=== PATIENT | female | born 1945 | race Caucasian/White ===

== ENCOUNTER 2018-02-07 07:26 | Emergency (ER) | payer MEDICARE, MEDICAID | END 2018-02-07 07:57 | disposition home or self-care (01) | LOC: ER 07:26 | DX: B02.9 Zoster without complications (principal); G89.29 Other chronic pain; M54.5 Low back pain; E78.5 Hyperlipidemia, unspecified; Z86.19 Personal history of other infectious and parasitic diseases | CPT/HCPCS: 99283 ==